=== PATIENT | male | born 1975 | race Caucasian/White ===

== ENCOUNTER 2025-04-20 18:37 | Emergency (ER) | payer SELFPAY ==
[~2025-04-20] VITALS: Ht 188 cm; Wt 68.0 kg
[2025-04-20 18:44] VITALS: BP 127/94; PULSE 88; RESP 16; TEMP 98.9; O2SAT 98
== END 2025-04-20 19:58 | disposition left against medical advice (07) ==
LOC: EMS 18:37
DX: F10.129 Alcohol abuse with intoxication, unspecified (principal); Z53.21 Procedure and treatment not carried out due to patient leaving prior to being seen by health care provider

== ENCOUNTER 2025-10-18 00:03 | Inpatient (IN) | payer MEDICAID ==
[~2025-10-18] VITALS: Ht 190.5 cm; Wt 75.0 kg
[2025-10-18 06:53] LABS: PLATELET COUNT (AUTO) 178 K/uL (150-450); RED BLOOD CELL COUNT(AUTO) 4.13 MIL/uL (4.50-5.90); RED CELL DISTRIBUTION WIDTH 16.8 % (11.5-14.5); WHITE BLOOD COUNT (AUTO) 3.2 K/uL (4.5-11.0)
[2025-10-18 06:56] LABS: CALCIUM, TOTAL 8.8 mg/dL (8.8-10.5); CREATININE 0.72 mg/dL (0.60-1.30); GLOMERULAR FILTR. RATE CALC > 60 mL/min (>60); GLUCOSE,RANDOM 82 mg/dL (70-110); SODIUM SERUM 143 mmol/L (136-145); UREA NITROGEN, BLOOD 6 mg/dL (7-18)
[2025-10-18 07:02] LABS: ASPARTATE AMINOTRANSFERASE 67.0 U/L (15-37); TOTAL PROTEIN, SERUM 7.6 g/dL (6.4-8.2)
[2025-10-18 08:55] VITALS: BP 125/88; PULSE 75; RESP 20; TEMP 97.9; O2SAT 98
[2025-10-18] MEDS ORDERED: MORPHINE SULFATE 2 MG/ML SYRINGE IVP PRN (10:15)
[2025-10-18] MEDS ORDERED: ACETAMINOPHEN 325 MG TABLET PO PRN (10:15)
[2025-10-18] MEDS ORDERED: BISACODYL 10 MG RECTAL RECTAL SUPPOSITORY PR PRN (10:15)
[2025-10-18] MEDS ORDERED: MAGNESIUM HYDROXIDE SUSPENSION 30 ML UDCUP PO PRN (10:15)
[2025-10-18] MEDS ORDERED: ZOLPIDEM TARTRATE 5 MG TABLET PO PRN (10:15)
[2025-10-18] MEDS: HYDROCODONE/ACETAMINOPHEN 5-325 MG TABLET PO PRN (10:48)
[2025-10-18] MEDS: ONDANSETRON HCL 4 MG/2 ML VIAL IVP PRN (11:18)
[2025-10-18] MEDS: MORPHINE SULFATE 4 MG/ML SYRINGE IVP PRN (15:23)
[2025-10-18] MEDS: HEPARIN SODIUM,PORCINE 5,000 UNITS/ML VIAL SQ SCH (15:24)
[2025-10-18 16:00] VITALS: BP 143/99; PULSE 82; RESP 19; TEMP 97.9; O2SAT 96
[2025-10-18 19:56] VITALS: PULSE 80; RESP 18; TEMP 98.2; O2SAT 100
[2025-10-18 20:25] VITALS: BP 141/100; RESP 18
[2025-10-18] MEDS: DOCUSATE SODIUM 100 MG CAPSULE PO SCH (20:31)
[2025-10-19 04:37] VITALS: BP 145/100; PULSE 85; RESP 18; TEMP 98.2; O2SAT 98
[2025-10-19 05:00] VITALS: BP 143/99; RESP 19; O2SAT 98
[2025-10-19 08:06] LABS: PLATELET COUNT (AUTO) 151 K/uL (150-450); RED BLOOD CELL COUNT(AUTO) 4.18 MIL/uL (4.50-5.90); RED CELL DISTRIBUTION WIDTH 16.8 % (11.5-14.5); WHITE BLOOD COUNT (AUTO) 3.3 K/uL (4.5-11.0)
[2025-10-19 08:12] LABS: CALCIUM, TOTAL 9.7 mg/dL (8.8-10.5); CREATININE 0.60 mg/dL (0.60-1.30); GLOMERULAR FILTR. RATE CALC > 60 mL/min (>60); GLUCOSE,RANDOM 100 mg/dL (70-110); SODIUM SERUM 140 mmol/L (136-145); UREA NITROGEN, BLOOD 10 mg/dL (7-18)
[2025-10-19 08:26] VITALS: BP 142/95; PULSE 71; RESP 18; TEMP 98.1; O2SAT 98
[2025-10-19] MEDS: PANTOPRAZOLE SODIUM 40 MG DR TABLET PO SCH (08:39)
[2025-10-19 16:54] VITALS: BP 121/95; PULSE 91; RESP 18; TEMP 98.1; O2SAT 98
[2025-10-19 20:00] VITALS: BP 133/95; PULSE 87; RESP 18; TEMP 98.2; O2SAT 98
[2025-10-20 04:00] VITALS: BP 118/83; PULSE 102; RESP 18; TEMP 98.1; O2SAT 97
[2025-10-20 08:23] LABS: PLATELET COUNT (AUTO) 145 K/uL (150-450); RED BLOOD CELL COUNT(AUTO) 4.37 MIL/uL (4.50-5.90); RED CELL DISTRIBUTION WIDTH 16.9 % (11.5-14.5); WHITE BLOOD COUNT (AUTO) 3.7 K/uL (4.5-11.0)
[2025-10-20 08:33] LABS: CALCIUM, TOTAL 9.4 mg/dL (8.8-10.5); CREATININE 0.76 mg/dL (0.60-1.30); GLOMERULAR FILTR. RATE CALC > 60 mL/min (>60); GLUCOSE,RANDOM 83 mg/dL (70-110); SODIUM SERUM 135 mmol/L (136-145); UREA NITROGEN, BLOOD 9 mg/dL (7-18)
[2025-10-20 08:41] VITALS: BP 103/83; PULSE 85; RESP 18; TEMP 97.8; O2SAT 97
[2025-10-20 11:51] LABS: APPEARANCE,URINE HAZY (CLEAR); GLUCOSE, URINE (UA) NEGATIVE (NEGATIVE); LEUKOCYTE ESTERASE ,URINE NEGATIVE (NEGATIVE); NITRATE,URINE NEGATIVE (NEGATIVE); OCCULT BLOOD,URINE NEGATIVE (NEGATIVE); SPECIFIC GRAVITIY, URINE 1.025 (1.003-1.030)
[2025-10-20] MEDS: POTASSIUM CHLORIDE 20 MEQ ER TABLET PO PRN (12:14)
[2025-10-20] MEDS ORDERED: POTASSIUM CHL 10 MEQ/WATER 50 ML IV PRN (12:15)
[2025-10-20 15:19] VITALS: BP 99/87; PULSE 79; RESP 16; TEMP 98; O2SAT 96
[2025-10-20 20:16] VITALS: BP 104/79; PULSE 81; RESP 18; TEMP 97.9; O2SAT 99
[2025-10-21 04:24] VITALS: BP 104/87; PULSE 85; RESP 18; TEMP 97.9; O2SAT 96
[2025-10-21 08:18] LABS: PLATELET COUNT (AUTO) 121 K/uL (150-450); RED BLOOD CELL COUNT(AUTO) 3.98 MIL/uL (4.50-5.90); RED CELL DISTRIBUTION WIDTH 16.7 % (11.5-14.5); WHITE BLOOD COUNT (AUTO) 2.9 K/uL (4.5-11.0)
[2025-10-21 08:29] LABS: CALCIUM, TOTAL 9.3 mg/dL (8.8-10.5); CREATININE 0.61 mg/dL (0.60-1.30); GLOMERULAR FILTR. RATE CALC > 60 mL/min (>60); GLUCOSE,RANDOM 102 mg/dL (70-110); SODIUM SERUM 136 mmol/L (136-145); UREA NITROGEN, BLOOD 11 mg/dL (7-18)
[2025-10-21] MEDS ORDERED: CHLO5CAP4 PO (09:26)
[2025-10-21] MEDS: CYCLOBENZAPRINE HCL 10 MG TABLET PO ONE (10:12)
== END 2025-10-21 13:13 | disposition home health service (06) | DRG 340 ==
LOC: EMS 00:04 → EDH 06:57 → 6S 08:30
PROVIDERS: ADMIT Internal Medicine; ATTEND Internal Medicine
PROC: 0YJ Anatomical Regions, Lower Extremities, Inspection (ICD-10-PCS; principal; 2025-10-18)
DX: S72.112A Displaced fracture of greater trochanter of left femur, initial encounter for closed fracture (principal); F10.139 Alcohol abuse with withdrawal, unspecified; I10 Essential (primary) hypertension; Z91.199 Patient's noncompliance with other medical treatment and regimen due to unspecified reason; R26.2 Difficulty in walking, not elsewhere classified; Y90.8 Blood alcohol level of 240 mg/100 ml or more; W18.39XA Other fall on same level, initial encounter; Y93.89 Activity, other specified; Y92.89 Other specified places as the place of occurrence of the external cause; Y99.8 Other external cause status
CPT/HCPCS: 73700; 80048; 80076; 81003; 84132; 85025; 85610; 97116; 97162; 97166; 99285; J1644; J2270; J2405

== ENCOUNTER 2025-10-24 21:37 | Emergency (ER) | payer MEDICAID ==
[~2025-10-24] VITALS: Ht 190.5 cm; Wt 75.0 kg
[~2025-10-24 21:37] MED LIST: CHLO5CAP4 PO
[2025-10-24 22:22] VITALS: BP 124/90; PULSE 97; RESP 18; TEMP 98; O2SAT 93
[2025-10-25] MEDS ORDERED: HYDR-4062 PO (01:08)
[2025-10-25] MEDS: HYDROCODONE/ACETAMINOPHEN 5-325 MG TABLET PO ONE (01:12)
== END 2025-10-25 01:55 | disposition home or self-care (01) ==
LOC: EMS 21:38
DX: S72.112A Displaced fracture of greater trochanter of left femur, initial encounter for closed fracture (principal); F10.20 Alcohol dependence, uncomplicated; G89.29 Other chronic pain; I10 Essential (primary) hypertension; Z79.899 Other long term (current) drug therapy; X58.XXXA Exposure to other specified factors, initial encounter; Y93.89 Activity, other specified; Y92.89 Other specified places as the place of occurrence of the external cause; Y99.8 Other external cause status
CPT/HCPCS: 73503; 99283

== ENCOUNTER 2025-11-06 20:17 | Emergency (ER) | payer MEDICAID ==
[~2025-11-06] VITALS: Ht 188 cm; Wt 73.6 kg
[~2025-11-06 20:17] MED LIST changes: +HYDR-4062 PO
[2025-11-06 20:35] VITALS: TEMP 98.1
[2025-11-06] MEDS: HYDROCODONE/ACETAMINOPHEN 10-325 MG TABLET PO ONE (23:32)
[2025-11-07 00:12] VITALS: BP 127/84; PULSE 63; RESP 18; O2SAT 99
[2025-11-07] MEDS ORDERED: HYDR-4062 PO (01:20)
== END 2025-11-07 01:54 | disposition home or self-care (01) ==
LOC: EMS 20:17
DX: S72.112A Displaced fracture of greater trochanter of left femur, initial encounter for closed fracture (principal); I10 Essential (primary) hypertension; F10.20 Alcohol dependence, uncomplicated; G89.29 Other chronic pain; Z79.899 Other long term (current) drug therapy; X58.XXXA Exposure to other specified factors, initial encounter; Y93.89 Activity, other specified; Y92.89 Other specified places as the place of occurrence of the external cause; Y99.8 Other external cause status; Y90.9 Presence of alcohol in blood, level not specified
CPT/HCPCS: 73503; 99283